=== PATIENT | female | born 1990 | race Caucasian/White ===

== ENCOUNTER → 2017-05-31 | Outpatient (CLI) | payer OTHER ==
--- NOTE | 2017-05-31 14:37 | KCIC ---
MRI Lumbar Spine without contrast History: Chronic pain for 6 to 7 years, intermittent leg pain in both legs. Technique: Multiplanar, multi sequential noncontrast MR imaging was performed of the lumbar spine. Contrast: None Comparison: None Findings: Lumbar vertebral body stature and AP alignment are preserved. There is no significant marrow edema. Conus terminates normally at L1-2. L2-L3: Neural foramina and spinal canal are adequate. L3-L4: Neural foramina and spinal canal are adequate. There is mild prominence of posterior epidural fat. L4-L5: There is mild prominence of posterior epidural fat. Neural foramina and spinal canal are adequate. L5-S1: Spinal canal and neural foramina are adequate. Impression: 1. There is no significant lumbar spinal stenosis or neural foramina compromise. Electronically signed by: Pranav Valdes MD (05/31/2017 2:33 PM) [id number]
== END | disposition home or self-care (01) ==
LOC: KCIC MRI 13:26
PROVIDERS: ATTEND Physician Assistant
DX: M54.16 Radiculopathy, lumbar region (principal); M79.605 Pain in left leg; M79.604 Pain in right leg; G89.29 Other chronic pain
CPT/HCPCS: 72148

== ENCOUNTER → 2017-11-19 | Outpatient (CLI) | payer OTHER | END | disposition home or self-care (01) | LOC: KCIC MRI 11:20 | DX: M25.532 Pain in left wrist (principal); R20.0 Anesthesia of skin | CPT/HCPCS: 73221 ==